=== PATIENT | female | born 1990 | race Caucasian/White ===

== ENCOUNTER → 2019-06-17 15:52 | Outpatient (BNVA) | payer BC, SELFPAY | PROVIDERS: Family Provider Family Medicine; PCP Family Medicine; Visit Provider Nurse Practitioner | DX: R51 Headache (principal); R52 Pain, unspecified | CPT/HCPCS: 87804 ==

== ENCOUNTER 2019-10-05 15:51 | Emergency (ER) | payer BC, SELFPAY ==
[2019-10-05 16:04] VITALS: BP 120/68; PULSE 106; RESP 14; TEMP 37.4; O2SAT 98; BMI 27.8
--- NOTE | 2019-10-05 17:12 | ED_ITS ---
HPI - Back Pain/Injury General: Chief Complaint: Back Pain/Injury Stated Complaint: back pain Time Seen by Provider: 10/05/19 17:00 History of Present Illness: HPI Narrative: Patient was playing baseball day before yesterday pitching and throwing the ball which she has not done in years and now she has pain right side of her mid back with range of motion MD elicited complaint: back pain Pertinent past history: prior back pain Onset (ago): day(s) Timing: progressively worsening Severity: mild Similar Symptoms Previously: No Quality: aching Location: right upper back Radiation: none Exacerbating factors: movement Relieving factors: immobilization Context: turning/twisting and other (Playing baseball) Associated symptoms: Deny abdominal pain, chills, fever(s), nausea or vomiting Treatments prior to arrival: NSAIDS Work related injury: No Review of Systems Const: Denies: fever(s), chills or body aches Eyes: Denies: change in vision or blurry vision ENMT: Denies: throat pain or nasal congestion Card: Denies: chest pain or dyspnea on exertion Resp: Denies: dyspnea, productive cough or non-productive cough GI: Denies: abdominal pain, nausea or vomiting Musc: Reports: back pain (Right side of her back upper part hurts with range of motion twisting and throwing and lifting right arm); Denies: extremity pain Skin/Breast: Denies: rash Neuro: Denies: headache(s) Psych: Denies: anxiety or depression Freddie/Lymph: Denies: easy bruising PFSH ED PFSH: Medical History (Updated 10/05/19 @ 17:12 by JODI Melchor) Chronic GERD Irritable bowel syndrome with constipation Surgical History (Updated 05/26/19 @ 08:36 by Aide Sosa DO) H/O knee surgery RIGHT Family History Mother Stroke Grandmother Stroke Other COPD (chronic obstructive pulmonary disease) Cancer Diabetes Hypertension Social History Smoking and tobacco status: never smoked Alcohol intake: current Alcohol intake frequency: holidays/special occasions only Female Reproductive History: Date of last menstrual period: 09/14/19 Physical Exam Const: COMMON NORMALS: no acute distress, average body habitus and patient oriented x3 HENMT: COMMON NORMALS: normocephalic HEAD & SCALP: normal to inspection and normocephalic FACE & SINUS: normal facial exam Eye: COMMON NORMALS: conjunctivae normal GENERAL EYE: appearance normal, both eyes and all related structures CONJUNCTIVA: Yes conjunctivae normal Neck/C-Spine: COMMON NORMALS: no JVD Chest: COMMONS NORMALS: normal inspection of the chest Resp: COMMON NORMALS: normal respiratory effort and clear to auscultation bilaterally AUSCULTATION: clear to auscultation bilaterally Cardio: COMMON NORMALS: no JVD, regular rate and regular rhythm RATE: regular rate RHYTHM: regular rhythm GI: COMMON NORMALS: Normal to inspection, nondistended, normoactive bowel sounds present Back/Pelvis: THORACIC SPINE/UPPER BACK: Yes ROM limited (Due to pain tender to throughout the latissimus dorsi pain with twisting of her trunk and lifting the right arm and doing a throwing motion no swelling breath sounds are fine) Extremity: COMMON NORMALS: normal to inspection and full ROM Neuro: COMMON NORMALS: patient oriented x3 Course Vital Signs: Vital signs: Vital Signs Temperature 99.3 F 10/05/19 16:04 Pulse Rate 106 H 10/05/19 16:04 Respiratory Rate 14 10/05/19 16:04 Blood Pressure 120/68 10/05/19 16:04 Pulse Oximetry 98 10/05/19 16:04 Discharge Plan Discharge Patient Disposition: Home, Self-Care Clinical Impression: Strain of latissimus dorsi muscle Qualifiers: Encounter type: initial encounter Qualified Code(s): S29.012A - Strain of muscle and tendon of back wall of thorax, initial encounter Condition: Stable Prescriptions: New tramadol 50 mg tablet 50 mg PO Q6H PRN (Reason: pain) Qty: 7 RF: 0 Skelaxin 800 mg tablet 800 mg PO TID PRN (Reason: muscle pain) Qty: 7 RF: 0 No Action pantoprazole [Protonix] 40 mg tablet,delayed release (DR/EC) 40 mg PO DAILY RF: 0 loratadine [Claritin] 10 mg tablet 10 mg PO DAILY RF: 0 Multiple Vitamins Tablet 1 tab PO DAILY RF: 0 Noble 5-325 mg Tablet See Rx Instructions .ROUTE .COMPLEX RF: 0 Tylenol Extra Strength 500 mg Tablet 500 - 1,000 mg PO PRN RF: 0 ibuprofen 200 mg Tablet 400 mg PO PRN RF: 0 Balziva (28) 0.4-35 mg-mcg tablet 1 tab PO DAILY RF: 0 Zofran 4 mg tablet 4 mg PO Q8H PRN (Reason: Nausea) RF: 0 Discharge Orders: Discharge Order (Routine); Ordered 10/05/19 Ordered By: Harley Flores Referrals: Aide Sosa DO [Primary Care Provider] - Discharge Diet: Usual diet Discharge Activity: Increase activity as tolerated Patient Instructions: Muscle Strain (ED) Activity Restrictions/Additional Instructions: Follow-up with medical provider as directed. Take medications as prescribed. Return to the ER or your medical provider if condition worsens. Please read and understand discharge instructions. If any questions ask please. Coding Level of Care Code ED Leadership Program Associate for Amirah De La Torre
[2019-10-05 17:19] VITALS: BP 100/85; PULSE 84; RESP 18; O2SAT 99
== END 2019-10-05 17:19 | disposition home or self-care (01) ==
PROVIDERS: Emergency Provider Nurse Practitioner Family; PCP Family Medicine
DX: S29.012A Strain of muscle and tendon of back wall of thorax, initial encounter (principal); X50.9XXA Other and unspecified overexertion or strenuous movements or postures, initial encounter; Y93.64 Activity, baseball
CPT/HCPCS: 12345; 99281; 99282

== ENCOUNTER 2020-03-14 07:45 | Outpatient (CLI) | payer BC, SELFPAY ==
--- NOTE | 2020-03-14 08:03 | MR_ITS ---
WS: [id number] MRI BRAIN WITH AND WITHOUT CONTRAST HISTORY: severe left sided headache with vision change COMPARISON: None available. TECHNIQUE: Multiplanar imaging performed through the brain with Prohance 17 ml's IV. No acute infarcts are seen. Iraheta-white matter differentiation is well preserved. No susceptibility artifacts or prior lacunar infarcts. Ventricles and extra-axial spaces are normal. Clivus and pituitary gland are normal. Visualized posterior fossa and brainstem are also normal. Postcontrast images are negative for masses or vascular malformations. Dural venous sinuses are normal. Paranasal sinuses: Well aerated with no significant disease. Mildly prominent ethmoids. Mastoid air cells: Normal. Calvarium and scalp: Normal. MR/MR head wo/w con [id number] IMPRESSION: 1. Normal MRI brain with contrast. 2. No infarct or mass identified.
== END 2020-03-14 07:46 | disposition home or self-care (01) ==
LOC: RADWPI 07:51
PROVIDERS: PCP Family Medicine; Visit Provider Family Medicine
DX: R51.9 Headache, unspecified (principal); H53.9 Unspecified visual disturbance
CPT/HCPCS: 70553; A9579

== ENCOUNTER → 2020-04-18 13:36 | Outpatient (BNVA) | payer BC, SELFPAY | PROVIDERS: PCP Family Medicine; Visit Provider Family Medicine | DX: R53.83 Other fatigue (principal); G43.009 Migraine without aura, not intractable, without status migrainosus; Z68.29 Body mass index [BMI] 29.0-29.9, adult | CPT/HCPCS: 80053; 84443; 85025 ==

== ENCOUNTER → 2020-09-08 08:40 | Outpatient (BNVA) | payer BC, SELFPAY | PROVIDERS: PCP Family Medicine; Visit Provider Specialist | DX: G43.709 Chronic migraine without aura, not intractable, without status migrainosus (principal) | CPT/HCPCS: 99203; 99204 ==

== ENCOUNTER → 2023-12-30 13:47 | Outpatient (BNVA) | payer BC, SELFPAY | PROVIDERS: PCP Family Medicine; Visit Provider Nurse Practitioner Family | DX: R39.9 Unspecified symptoms and signs involving the genitourinary system (principal) | CPT/HCPCS: 81000 ==

== ENCOUNTER → 2024-01-01 11:59 | Outpatient (BNVA) | payer BC, SELFPAY | PROVIDERS: PCP Family Medicine; Visit Provider Registered Nurse Neonatal Intensive Care | DX: J02.9 Acute pharyngitis, unspecified (principal); R50.9 Fever, unspecified | CPT/HCPCS: 87400; 87426; 87880 ==

== ENCOUNTER 2024-01-14 22:25 | Emergency (ER) | payer BC, SELFPAY ==
[2024-01-14 22:30] VITALS: BP 132/91; PULSE 74; RESP 16; TEMP 36.5; O2SAT 99; BMI 31.7
--- NOTE | 2024-01-14 23:39 | XRR_ITS ---
PROCEDURE INFORMATION: Exam: XR Abdomen Exam date and time: 01/14/2024 11:52 PM Age: 33 years old Clinical indication: Constipation and nausea; Abdominal pain TECHNIQUE: Imaging protocol: Radiologic exam of the abdomen. Views: Frontal supine view of the abdomen. 1 View. COMPARISON: CT abdomen pelvis w con* [id number] 10/16/2018 1:32 PM FINDINGS: Gastrointestinal tract: No dilated loops of large or small bowel is appreciated. There is a moderate amount of stool within the colon. No pathologic calcifications are noted. Bones/joints: Unremarkable. XR/XR KUB portable [id number] IMPRESSION: 1. Fecal stasis.
--- NOTE | 2024-01-14 23:54 | ED_ITS ---
HPI - Abdominal Pain General: Chief Complaint: Abdominal Pain Stated Complaint: constipation, n/v upper abd pain now Time Seen by Provider: 01/14/24 23:15 Source: patient Mode of arrival: ambulatory Limitations: no limitations History of Present Illness: Patient is a 33-year-old female presenting to the emergency department complaining constipation for the last 3 weeks. States it has been this long since she has had a normal solid bowel movement, has had few episodes of diarrhea since. She has tried [id number] MiraLAX, Dulcolax, and mag citrate with minimal relief. Also is now reporting some epigastric pain as well as nausea. She is not reporting any fever, vomiting, urinary symptoms, or other concerning historical factors. Vitals currently normal and she does appear nontoxic on time of examination. She denies any recent dietary changes. MD elicited complaint: other (Constipation) Pertinent past history: none Onset (ago): week(s) (3) Pain Consistency: constant Location: Epigastric Severity: mild Quality: fullness Associated Symptoms: Reports constipation, diarrhea and nausea; Denies bloating, change in stool character, chills, dysuria, fever(s), hematochezia and vomiting Treatments prior to arrival: other (Multiple laxatives) Related Data Home Medications Medication Instructions Recorded Confirmed loratadine 10 mg tablet (Claritin) 10 mg PO DAILY 05/26/19 01/01/24 drospirenone (contraceptive) 4 mg 1 tab PO DAILY 03/08/22 01/01/24 (28) tablet (Slynd) nortriptyline 25 mg capsule 25 mg PO DAILY 12/30/23 01/01/24 pantoprazole 20 mg tablet,delayed 20 mg PO DAILY 12/30/23 01/01/24 release propranolol 20 mg tablet 10 mg PO BID 12/30/23 01/01/24 Allergies Allergy/AdvReac Type Severity Reaction Status Date / Time No Known Allergies Allergy Verified 01/14/24 22:34 Review of Systems General: Reports: 10 or more systems reviewed and unremarkable except in HPI and below Const: Denies: fever(s), chills, change in appetite, change in weight or diaphoresis ENMT: Denies: throat pain or hoarseness Card: Denies: chest pain, palpitations or lightheadedness Resp: Denies: dyspnea, productive cough or wheezing GI: Reports: abdominal pain, nausea, diarrhea and constipation; Denies: vomiting, bloating, change in stool character or hematochezia : Denies: flank pain, difficulty voiding, dysuria, urinary frequency or urinary urgency Musc: Denies: neck pain or back pain Skin/Breast: Denies: rash or new lesions Neuro: Denies: headache(s) or dizziness PFSH ED PFSH: Medical History (Updated 01/15/24 @ 00:55 by NICOLE Wood) Irritable bowel syndrome with constipation Chronic GERD Surgical History H/O knee surgery RIGHT Family History Mother Stroke Grandmother Stroke Other COPD (chronic obstructive pulmonary disease) Cancer Diabetes Hypertension Social History Smoking and tobacco/nicotine status: unknown if used tobacco/nicotine Alcohol intake: current Alcohol intake frequency: holidays/special occasions only Substance/Drug Use: never Physical Exam Const: COMMON NORMALS: no acute distress, average body habitus, patient oriented x3, no limitations, healthy appearing, alert and well nourished GENERAL APPEARANCE: cooperative and comfortable ORIENTATION/CONSCIOUSNESS: Yes awake HENMT: COMMON NORMALS: normocephalic, atraumatic, hearing grossly normal bilaterally, external ears normal, Normal external nose present, Normal nasal mucous membranes and turbinates present and moist oral mucous membranes HEAD & SCALP: normocephalic and atraumatic NOSE: Normal external nose present and Normal nasal mucous membranes and turbinates present EXTERNAL EAR: Yes external ears normal Eye: COMMON NORMALS: Equal, round and reactive pupils present, EOMs intact bilaterally, conjunctivae normal and normal visual morris by confrontation CONJUNCTIVA: Yes conjunctivae normal PUPIL: Yes Equal, round and reactive pupils present Neck/C-Spine: COMMON NORMALS: full ROM, supple, no meningeal signs and no JVD Resp: COMMON NORMALS: normal respiratory effort, No retractions, No use of accessory muscles and clear to auscultation bilaterally AUSCULTATION: clear to auscultation bilaterally, no crackles, no rales, no rhonchi and no wheezes Cardio: COMMON NORMALS: no JVD, regular rate, regular rhythm, S1 normal heart sound present, S2 normal heart sound present, No gallops present (Cardio), No clicks present (Cardio), No murmurs present (Cardio), No rub (Cardio) and Peripheral pulses 2+ throughout RATE: regular rate RHYTHM: regular rhythm HEART SOUNDS: S1 normal heart sound present and S2 normal heart sound present PERIPHERAL PULSES: Peripheral pulses 2+ throughout GI: COMMON NORMALS: Normal to inspection, nondistended, normoactive bowel sounds present, Soft to palpation, non-tender, No hepatosplenomegaly present and no masses AUSCULTATION: Yes normoactive bowel sounds PALPATION: Yes Soft to palpation, No Guarding due to palpation present (GI), No Rigid due to palpation and Yes No hepatosplenomegaly present RECTAL EXAM: deferred : COMMON NORMALS: Yes no CVA tenderness BLADDER/KIDNEY EXAM: Yes no CVA tenderness Back/Pelvis: COMMON NORMALS: no CVA tenderness Extremity: COMMON NORMALS: normal to inspection and full ROM Neuro: COMMON NORMALS: patient oriented x3, moves all extremities, no focal motor deficits and no sensory deficits noted SENSORIUM/ORIENTATION: Yes alert MENINGEAL SIGNS: Yes no meningeal signs Psych: COMMON NORMALS: mental status grossly normal, cooperative and speech normal SPEECH: Yes normal speech Skin: COMMON NORMALS: no rashes or lesions noted GENERAL SKIN EXAM: no rashes or lesions noted Course Vital Signs: Vital signs: Vital Signs Temperature 97.7 F 01/14/24 22:30 Pulse Rate 76 01/15/24 01:12 Respiratory Rate 16 01/15/24 01:12 Blood Pressure 138/88 01/15/24 01:12 Pulse Oximetry 99 01/15/24 01:12 MDM - Abdominal Pain Medical Decision Making Patient presented with 3 weeks of abdominal pain from being constipated, has had a few intermittent episodes of diarrhea that she states is from taking so much MiraLAX. Did appear nontoxic on physical examination with normal vitals, overall an unremarkable physical examination. KUB obtained did show evidence of stool burden without obstructive pattern, patient has retained the ability to pass gas. We will treat with combination of mineral oil, mag citrate, and lactulose with instructions to increase fluids and fiber. She is to follow-up with primary care as already planned and will continue taking MiraLAX as a maintenance therapy. With any worsening of her symptoms she is instructed to come back to the emergency department for further workup, she agrees at this time and is ready to go home. Lab Data Labs/Radiology: Radiology Impressions KUB X-Ray 01/14/24 23:39 IMPRESSION: 1. Fecal stasis. All radiology interpretation(s) finalized by discharge Discharge Plan Discharge Patient Disposition: Home Clinical Impression: Constipation Condition: Stable Prescriptions: No Action loratadine [Claritin] 10 mg tablet 10 mg PO DAILY pantoprazole 20 mg tablet,delayed release (DR/EC) 20 mg PO DAILY nortriptyline 25 mg capsule 25 mg PO DAILY propranolol 20 mg tablet 10 mg PO BID Slynd 4 mg (28) tablet 1 tab PO DAILY Discharge Orders: Discharge ED (Routine); Ordered 01/15/24 Ordered By: Fer Hawk Referrals: Emilio Oh DO [Primary Care Provider] - Discharge Diet: As Directed Discharge Activity: Increase activity as tolerated Patient Instructions: Constipation (ED) Activity Restrictions/Additional Instructions: Take combination of meds as prescribed at home. Please continue taking MiraLAX for maintenance relief. Plenty of fluids and increase your dietary fiber intake. With any new or worsening of symptoms return, but please follow-up with primary care as needed. Print Language: Italian Coding Level of Care Code ED Ibm Mainframe Developer for Amirah De La Torre
[2024-01-15] MEDS: mineral oil 30 mL UDC PO (01:07)
[2024-01-15] MEDS: lactulose oral liq 20 gm/30 mL UDC 30 GM PO (01:07)
[2024-01-15] MEDS: magnesium citrate Btl 296 mL PO (01:08)
[2024-01-15 01:12] VITALS: BP 138/88; PULSE 76; RESP 16; O2SAT 99
== END 2024-01-15 01:13 | disposition home or self-care (01) ==
PROVIDERS: Emergency Provider Physician Assistant; PCP Family Medicine
DX: K59.00 Constipation, unspecified (principal)
CPT/HCPCS: 74018; 99283

== ENCOUNTER 2024-08-25 10:39 | Day surgery (SDC) | payer BC, SELFPAY ==
[2024-08-25 11:05] VITALS: BP 121/100; PULSE 93; RESP 18; TEMP 36.4; O2SAT 96; BMI 30.1
[2024-08-25] MEDS: sodium chloride 0.9% 1,000 ML 30 ML IV (11:15)
--- NOTE | 2024-08-25 11:20 | ANES.PREANE2 ---
Pre-Anesthetic Assessment Height/Weight: Height 1.78 m Weight 95.254 kg Temp Pulse Resp BP Pulse Ox O2 Del Method 97.5 F L 93 18 121/100 96 Room Air 08/25/24 11:05 08/25/24 11:05 08/25/24 11:05 08/25/24 11:05 08/25/24 11:05 08/25/24 11:05 Preop Diagnosis: gerd, anal fissure Operation Date: 08/25/24 12:00 Proposed Procedures p EGD [id number] G0105 K62.5 K60.2 K21.9(Not Applicable) - Gab Sousa MD s Colonoscopy(Not Applicable) - Gab Sousa MD Was Beta Ladan taken within 24 hours: Yes Was Clonidine taken within 24 hours: N/A Last intake: Intake Last Liquid Date 08/24/24 Last Liquid Time 21:00 Last Solid Date 08/23/24 Last Solid Time 17:30 Exam alert, oriented x 3, clear to auscultation bilaterally and regular rate & rhythm Airway Submandibular: within normal limits Cervical ROM: within normal limits Mallampati: Class II Dentition: chipped History/ROS No significant history except as noted Anesthetic Plan ASA status: 2 Anesthesia: MAC Risk of > 500 ml blood loss (7ml/kg in children): No Medications/Allergies Home Medications ?Medication ?Instructions ?Recorded ?Confirmed ?Last Taken ?Type pantoprazole 20 mg tablet,delayed 20 mg PO DAILY #90 tabs 06/22/24 08/25/24 08/24/24 Rx release propranolol 20 mg tablet 10 mg (1/2 x 20 mg) PO BID #180 06/22/24 08/25/24 08/25/24 Rx tabs sertraline 50 mg tablet 50 mg PO DAILY #90 tabs 06/25/24 08/25/24 08/24/24 Rx fexofenadine-pseudoephedrine ER 1 tab PO QAM 08/20/24 08/20/24 08/20/24 History 180 mg-240 mg tablet,ext.release 24 hr (Cathy-D 24 Hour) norethindrone (contraceptive) 0.35 See Rx Instructions .Route 08/21/24 08/25/24 08/24/24 Rx mg tablet (Jencycla) .COMPLEX #84 tabs Allergies Allergy/AdvReac Type Severity Reaction Status Date / Time No Known Allergies Allergy Verified 08/20/24 08:18 [facility] Anesthesia Medical History (Updated 07/10/24 @ 08:56 by Gab Sousa MD) Irritable bowel syndrome with constipation Chronic GERD Surgical History H/O knee surgery RIGHT Family History Mother Stroke Grandmother Stroke Other COPD (chronic obstructive pulmonary disease) Cancer Diabetes Hypertension Social History Smoking and tobacco/nicotine status: unknown if used tobacco/nicotine Alcohol intake: current Alcohol intake frequency: holidays/special occasions only Substance/Drug Use: never Data Anesthesia Cardiac Studies: No Data to Display
--- NOTE | 2024-08-25 11:36 | W.PM.OPSFHP ---
Same Day Surgery H&P Indication for Procedure/HPI DATE OF PROCEDURE: August 25, 2024 CHIEF COMPLAINT/INDICATIONFOR SURGICAL PROCEDURE: heartburn, diagnostic colonoscopy PREOP DIAGNOSIS: heartburn, hematochezia PLANNED PROCEDURE: Operation Date: 08/25/24 12:00 Proposed Procedures p EGD [id number] G0105 K62.5 K60.2 K21.9(Not Applicable) - Gab Sousa MD s Colonoscopy(Not Applicable) - Gab Sousa MD Medications/Allergies* Home Medications ?Medication ?Instructions ?Recorded ?Confirmed ?Type fexofenadine-pseudoephedrine ER 1 tab PO QAM 08/20/24 08/20/24 History 180 mg-240 mg tablet,ext.release 24 hr (Cathy-D 24 Hour) Allergies/Adverse Reactions Allergy/AdvReac Type Severity Reaction Status Date / Time No Known Allergies Allergy Verified 08/20/24 08:18 Pertinent History/Comorbid Conditions* Medical History (Updated 07/10/24 @ 08:56 by Gab Sousa MD) Irritable bowel syndrome with constipation Chronic GERD Surgical History (Updated 05/26/19 @ 08:36 by Aide Sosa DO) H/O knee surgery RIGHT Family History (Updated 05/26/19 @ 08:28 by Brittni Breen LPN) Diabetes COPD (chronic obstructive pulmonary disease) Cancer Hypertension Stroke Mother Grandmother Social History Smoking and tobacco/nicotine status: unknown if used tobacco/nicotine Alcohol intake: current Alcohol intake frequency: holidays/special occasions only Substance/Drug Use: never Pertinent Exam Findings alert, oriented x 3, clear to auscultation bilaterally, regular rate & rhythm and procedure specific exam findings abdomen soft, nt, nd Recommendations Risks and benefits of procedure reviewed Surgery/Procedure today Other Plans: EGD colonoscopy Coding Level of Care Code Acute Code for Chg Fwd
[2024-08-25 12:02] VITALS: BP 107/78; PULSE 70; RESP 16; TEMP 36.1; O2SAT 97
--- NOTE | 2024-08-25 12:38 | ANE.PACU2 ---
Inpatient post-anesthesia follow up: Airway intact: Yes Vital signs: Temperature 97 F Pulse Rate 70 Respiratory Rate 16 Blood Pressure 107/78 Pulse Oximetry 97 Oxygen Delivery Me thod Room Air Oxygen Flow Rate Fraction of Inspir ed Oxygen Hydration adequate: Yes Pain level: 1 Mental status: Baseline
--- NOTE | 2024-08-25 12:39 | ANE.PACU2 ---
Inpatient post-anesthesia follow up: Airway intact: Yes Vital signs: Temperature 97 F Pulse Rate 70 Respiratory Rate 16 Blood Pressure 107/78 Pulse Oximetry 97 Oxygen Delivery Me thod Room Air Oxygen Flow Rate Fraction of Inspir ed Oxygen Hydration adequate: Yes Nausea and vomiting: No Pain level: 1 Mental status: Baseline
== END 2024-08-25 12:30 | disposition home or self-care (01) ==
PROVIDERS: PCP Family Medicine; Visit Provider Student in an Organized Health Care Education/Training Program
PROC: 0DJ08ZZ Inspection of Upper Intestinal Tract, Via Natural or Artificial Opening Endoscopic (ICD-10-PCS; principal; 2024-08-25 12:00)
PROC: 0DJD8ZZ Inspection of Lower Intestinal Tract, Via Natural or Artificial Opening Endoscopic (ICD-10-PCS; CPT 45378; 2024-08-25 12:00)
DX: K64.4 Residual hemorrhoidal skin tags (principal); K21.9 Gastro-esophageal reflux disease without esophagitis; K58.1 Irritable bowel syndrome with constipation; Z79.899 Other long term (current) drug therapy
CPT/HCPCS: 43239; 45378; 88305; J2704; J7030

== ENCOUNTER → 2024-10-19 09:12 | Outpatient (BNVA) | payer BC, SELFPAY | PROVIDERS: PCP Family Medicine; Visit Provider Family Medicine | DX: F41.9 Anxiety disorder, unspecified (principal); F32.9 Major depressive disorder, single episode, unspecified; R53.83 Other fatigue; G44.209 Tension-type headache, unspecified, not intractable; E03.9 Hypothyroidism, unspecified | CPT/HCPCS: 80053; 82306; 82607; 84436; 84443; 84481; 85025 ==

== ENCOUNTER → 2025-03-02 18:46 | Outpatient (BNVA) | payer BC, SELFPAY | PROVIDERS: PCP Family Medicine; Visit Provider Emergency Medicine | DX: R10.A1 Flank pain, right side (principal) | CPT/HCPCS: 81000 ==